=== PATIENT | male | born 1945 | race Caucasian/White ===

== ENCOUNTER 2019-07-06 12:47 | Emergency (ER) | payer MEDICARE, OTHER ==
[~2019-07-06] VITALS: Ht 193 cm; Wt 101.3 kg
[2019-07-06 12:54] VITALS: BP 117/72
== END 2019-07-06 14:57 | disposition home or self-care (01) ==
LOC: ED 13:52
DX: M13.871 Other specified arthritis, right ankle and foot (principal)
CPT/HCPCS: 36415; 80053; 85025; 99284

== ENCOUNTER 2019-08-17 20:03 | Inpatient (IN) | payer MEDICARE, OTHER ==
[~2019-08-17] VITALS: Ht 193 cm; Wt 113.4 kg
[~2019-08-17 20:03] MED LIST: ASCO10004 PO; ASPI-13 PO; CYAN500L2 PO; GLIM2TAB2 PO; GLUC500T11 PO; GLYB2.5T2 PO; LEVO500T47 PO; LISI-167 PO; OMEP20TA62 PO; OXYC-302 PO; OXYC5CAP2 PO; PHEN-418 PO; PHEN-583 PO; SOTA120T26 PO; TRAM50TA2 PO; VITA100022 PO
[2019-08-17] MEDS ORDERED: SODIUM CHLORIDE FLUSH 10ML SYR IVF ONE (20:30)
[2019-08-17] MEDS ORDERED: SODIUM CHLORIDE 0.9% 1,000ML IVBOLUS ONE (20:30)
[2019-08-17 20:36] LABS: BASOPHILS # (AUTO) 0.01 x10^3/uL (0-0.1); BASOPHILS % (AUTO) 0 % (0-1); EOSINOPHILS % (AUTO) 0 % (1-7); LYMPHOCYTES # (AUTO) 0.86 x10^3/uL (1-3.4); LYMPHOCYTES % (AUTO) 13 % (22-44); MD NO; MEAN CORPUSCULAR HEMOGLOBIN 28.7 pg (27.5-34.5); MEAN CORPUSCULAR HGB CONC 33.2 g/dL (33.2-36.2); MEAN CORPUSCULAR VOLUME 86.5 fL (81-97); MEAN PLATELET VOLUME 8.5 fL (7.4-10.4); MONOCYTES # (AUTO) 0.64 x10^3/uL (0.2-0.8); MONOCYTES % (AUTO) 9 % (2-9); NEUTROPHILS # (AUTO) 5.31 x10^3/uL (1.8-6.8); NEUTROPHILS % (AUTO) 78 % (42-75); PLATELET COUNT 164 x10^3/uL (130-400); RED BLOOD COUNT 4.77 x10^6/uL (4.38-5.82); RED CELL DISTRIBUTION WIDTH 14.8 % (9.4-14.8)
[2019-08-17 20:48] LABS: ALANINE AMINOTRANSFERASE 46 U/L (12-78); ALBUMIN 3.4 g/dL (3.4-5.0); ANION GAP 14 mmol/L (5-15); CALCIUM 8.5 mg/dL (8.5-10.1); CHLORIDE 99 mmol/L (98-107); CREATININE 4.63 mg/dL (0.7-1.3)
[2019-08-17 20:50] LABS: ALKALINE PHOSPHATASE 53 U/L (45-117); BILIRUBIN,TOTAL 0.7 mg/dL (0.2-1.0); TOTAL PROTEIN 7.4 g/dL (6.4-8.2)
--- NOTE | 2019-08-17 20:54 | NUR ---
PT C/O URINARY RETENTION SINCE SAT WHILE IN [facility], BLADDER SCANNER SHOWS 0 URINE PT PLACED ON ALL MONITORS PIV STARTED AND NS GIVEN FOR HYPOTENTION, PT IN [place] AT THIS TIME
--- NOTE | 2019-08-17 21:12 | NUR ---
PT TO US AT THIS TIME
--- NOTE | 2019-08-17 21:20 | NUR ---
REPORT TO ADENIKE PT BACK FROM CT AT THIS TIME
[2019-08-17] MEDS ORDERED: POTASSIUM CHLORIDE 20 MEQ in SODIUM CHLORIDE 0.9% 1,000 ML IV ONE (21:52)
[2019-08-17 21:58] VITALS: BP 113/69
[2019-08-17] MEDS ORDERED: SODIUM CHLORIDE 0.9%, 500ML IVBOLUS ONE (22:00)
[2019-08-17] MEDS ORDERED: METF500T17 PO (22:19)
[2019-08-18 00:17] LABS: CULTURE INDICATED? YES; MICROSCOPIC INDICATED
[2019-08-18] MEDS: NS + 20MEQ KCL 1,000 ML IV SCH ×3 (00:25→17:09)
[2019-08-18 00:30] VITALS: BP 112/71
[2019-08-18 01:29] LABS: CLOSTRIDIUM DIFFICILE ANTIGEN NEGATIVE; CLOSTRIDIUM DIFFICILE TOXIN NEGATIVE (Negative)
[2019-08-18 05:12] LABS: ANION GAP 11 mmol/L (5-15); CALCIUM 7.9 mg/dL (8.5-10.1); CHLORIDE 103 mmol/L (98-107)
[2019-08-18 05:14] LABS: CREATININE 3.31 mg/dL (0.7-1.3)
[2019-08-18] MEDS ORDERED: OMEPRAZOLE 20 MG CAPSULE.DR PO SCH (06:00)
[2019-08-18] MEDS: SOTALOL 120MG TABLET PO SCH ×2 (06:02→17:09)
[2019-08-18 06:33] VITALS: BP 92/53
[2019-08-18] MEDS: INSULIN LISPRO 100 UNITS/ML, PEN SQ-INSULIN SCH ×4 (07:00→21:48)
[2019-08-18] MEDS ORDERED: LISINOPRIL 10 MG TABLET PO SCH (09:00)
[2019-08-18 12:10] LABS: ABSOLUTE RETICS # 0.094 x10^6/uL (0.5-1.5); RED BLOOD COUNT 4.32 x10^6/uL (4.38-5.82); RETICULOCYTE COUNT % 2.17 % (0.5-1.5)
[2019-08-18 12:30] VITALS: BP 106/65
[2019-08-18] MEDS: POTASSIUM CHLORIDE 20 MEQ TAB.ER.PRT PO SCH ×2 (12:55→17:09)
[2019-08-18] MEDS: LOPERAMIDE 2 MG CAPSULE PO PRN ×2 (12:56→17:09)
[2019-08-18] MEDS ORDERED: ACETAMINOPHEN 325 MG TABLET PO PRN (13:00)
[2019-08-18] MEDS ORDERED: TEMAZEPAM 15 MG CAPSULE PO PRN (13:00)
[2019-08-18 20:18] VITALS: BP 110/71
[2019-08-19 01:06] VITALS: BP 108/71
[2019-08-19] MEDS: NS + 20MEQ KCL 1,000 ML IV SCH ×2 (02:43→09:09)
[2019-08-19 05:25] LABS: BASOPHILS # (AUTO) 0.01 x10^3/uL (0-0.1); BASOPHILS % (AUTO) 0 % (0-1); EOSINOPHILS # (AUTO) 0.09 x10^3/uL (0-0.4); EOSINOPHILS % (AUTO) 2 % (1-7); LYMPHOCYTES # (AUTO) 0.84 x10^3/uL (1-3.4); LYMPHOCYTES % (AUTO) 20 % (22-44); MD NO; MEAN CORPUSCULAR HEMOGLOBIN 28.6 pg (27.5-34.5); MEAN CORPUSCULAR HGB CONC 32.6 g/dL (33.2-36.2); MEAN CORPUSCULAR VOLUME 87.6 fL (81-97); MEAN PLATELET VOLUME 9.4 fL (7.4-10.4); MONOCYTES # (AUTO) 0.64 x10^3/uL (0.2-0.8); MONOCYTES % (AUTO) 16 % (2-9); NEUTROPHILS # (AUTO) 2.53 x10^3/uL (1.8-6.8); NEUTROPHILS % (AUTO) 62 % (42-75); PLATELET COUNT 123 x10^3/uL (130-400); RED BLOOD COUNT 4.19 x10^6/uL (4.38-5.82); RED CELL DISTRIBUTION WIDTH 14.8 % (9.4-14.8)
[2019-08-19 05:30] LABS: ALANINE AMINOTRANSFERASE 35 U/L (12-78); ALBUMIN 2.6 g/dL (3.4-5.0); ANION GAP 8 mmol/L (5-15); CALCIUM 7.9 mg/dL (8.5-10.1); CHLORIDE 108 mmol/L (98-107)
[2019-08-19 05:32] LABS: ALKALINE PHOSPHATASE 42 U/L (45-117); BILIRUBIN,TOTAL 0.5 mg/dL (0.2-1.0); TOTAL PROTEIN 5.9 g/dL (6.4-8.2)
[2019-08-19] MEDS: SOTALOL 120MG TABLET PO SCH (05:49)
[2019-08-19] MEDS: LOPERAMIDE 2 MG CAPSULE PO PRN ×2 (05:50→10:47)
[2019-08-19] MEDS: INSULIN LISPRO 100 UNITS/ML, PEN SQ-INSULIN SCH ×2 (07:00→10:50)
[2019-08-19 07:45] VITALS: BP 109/52
[2019-08-19] MEDS: POTASSIUM CHLORIDE 20 MEQ TAB.ER.PRT PO SCH (07:52)
[2019-08-19] MEDS ORDERED: POTA20TA6 PO (12:54)
[2019-08-19] MEDS ORDERED: FERR325T16 PO (12:54)
[2019-08-19] MEDS ORDERED: FERROUS GLUCONATE 324 MG TABLET PO SCH (13:00)
[2019-08-19 13:59] VITALS: BP 110/73
[2019-08-19] MEDS ORDERED: FLU VAC QS 19-20(4YR UP)CEL/PF 0.5 ML IM-VACC ONE (14:30)
== END 2019-08-19 14:45 | disposition home or self-care (01) | DRG 640 ==
LOC: ED 21:24 → EDIP 21:36 → 4EST 21:56 → DCLOUNGE 08-19 14:34
PROVIDERS: ADMIT Family Medicine; ATTEND Family Medicine
DX: E86.0 Dehydration (principal); N17.0 Acute kidney failure with tubular necrosis; R33.8 Other retention of urine; D64.9 Anemia, unspecified; E83.51 Hypocalcemia; E87.6 Hypokalemia; G47.30 Sleep apnea, unspecified; I25.10 Atherosclerotic heart disease of native coronary artery without angina pectoris; I48.91 Unspecified atrial fibrillation; E11.9 Type 2 diabetes mellitus without complications; I10 Essential (primary) hypertension; N28.1 Cyst of kidney, acquired; N40.1 Benign prostatic hyperplasia with lower urinary tract symptoms; R31.0 Gross hematuria; Z96.651 Presence of right artificial knee joint; Z87.891 Personal history of nicotine dependence; Z89.512 Acquired absence of left leg below knee
CPT/HCPCS: 36415; 76770; 80048; 80053; 81001; 82306; 82310; 82728; 82962; 83540; 83550; 83605; 83735; 83970; 84100; 84550; 85025; 85045; 87086; 87324; 93005; 96360; G0378; J3480; J1815; J7030; J7040

== ENCOUNTER → 2020-06-07 | Outpatient (CLI) | payer MEDICARE, OTHER ==
[~2020-06-07] MED LIST changes: +FERR325T16 PO; -GLIM2TAB2 PO; +GLIM2TAB7 PO; +METF500T17 PO; +POTA20TA6 PO
== END | disposition home or self-care (01) ==
LOC: CVU 10:06
PROVIDERS: ATTEND Internal Medicine Cardiovascular Disease
DX: I11.9 Hypertensive heart disease without heart failure (principal); I08.8 Other rheumatic multiple valve diseases; I48.0 Paroxysmal atrial fibrillation; E78.5 Hyperlipidemia, unspecified; Z87.891 Personal history of nicotine dependence
CPT/HCPCS: 93306